=== PATIENT | female | born 1955 | race Caucasian/White ===

== ENCOUNTER → 2021-03-29 | Outpatient (CLI) | payer OTHER ==
[~2021-03-29] MED LIST: ASPI81EC; HYDACE5 PO; IBUP600 PO
[2021-03-29 15:38] LABS: BASOPHILS ABSOLUTE AUTO 0.06 K/mm3 (0.00-0.23); BASOPHILS PERCENT AUTO 1 % (0-2); EOSINOPHILS PERCENT AUTO 2 % (0-6); Hemoglobin 12.7 g/dL (11.5-16.0); IMMATURE GRAN ABSOLUTE AUTO 0.02 K/mm3 (0.00-0.10); IMMATURE GRAN PERCENT AUTO 0 % (0-1); LYMPHOCYTES ABSOLUTE AUTO 1.52 K/mm3 (0.84-5.20); LYMPHOCYTES PERCENT AUTO 25 % (21-46); MONOCYTES ABSOLUTE AUTO 0.44 K/mm3 (0.16-1.47); MONOCYTES PERCENT AUTO 7 % (4-13); Mean Corpuscular HGB 32.8 pg (26.0-34.0); Mean Corpuscular HGB Conc 32.6 g/dL (31.5-36.5); Mean Corpuscular Volume 101 fL (80-100); Mean Platelet Volume 9.7 fL (9.1-12.4); NEUTROPHILS ABSOLUTE AUTO 3.88 K/mm3 (1.96-9.15); NEUTROPHILS PERCENT AUTO 65 % (41-73); Platelet Count 395 K/mm3 (150-400); RDW Coefficient Variation 12.9 % (11.7-14.2); RDW Standard Deviation 47.4 fL (35.1-46.3); Red Blood Cell Count 3.87 M/mm3 (3.80-5.20); White Blood Cell Count 6.02 K/mm3 (4.00-11.30)
[2021-03-29 15:57] LABS: Alanine Aminotransfer (ALT/SGP 17 U/L (12-78); Alk Phos 78 U/L (40-126); Anion Gap 8 mmol/L (6-16); Aspartate Aminotrans (AST/SGOT 16 U/L (12-37); Bilirubin, Total 0.4 mg/dL (0.1-1.0); Blood Urea Nitrogen 12 mg/dL (8-24); CO2, Blood 32 mmol/L (21-32); Chloride, Blood 107 mmol/L (98-108); Creatinine, Blood 0.86 mg/dL (0.40-1.00); Glomerular Filtration Rate >60 (60-); Glucose, Blood 95 mg/dL (70-99); Potassium, Blood 4.2 mmol/L (3.5-5.5); Sodium, Blood 147 mmol/L (136-145); Thyroid Stimulating Hormone 0.979 uIU/mL (0.360-4.800)
== END | disposition home or self-care (01) ==
LOC: LAB SHORT 15:33
PROVIDERS: Physician Assistant Medical
DX: R53.83 Other fatigue (principal)
CPT/HCPCS: 80053; 84443; 85025; 87086

== ENCOUNTER 2021-07-22 16:50 | Observation (INO) | payer OTHER ==
[~2021-07-22] VITALS: Ht 162.6 cm; Wt 50.0 kg
[2021-07-22 17:26] LABS: BASOPHILS ABSOLUTE AUTO 0.08 K/mm3 (0.00-0.23); BASOPHILS PERCENT AUTO 1 % (0-2); EOSINOPHILS ABSOLUTE AUTO 0.07 K/mm3 (0.00-0.68); EOSINOPHILS PERCENT AUTO 1 % (0-6); Hematocrit 44.9 % (33.0-51.0); Hemoglobin 14.7 g/dL (11.5-16.0); IMMATURE GRAN ABSOLUTE AUTO 0.03 K/mm3 (0.00-0.10); IMMATURE GRAN PERCENT AUTO 0 % (0-1); LYMPHOCYTES ABSOLUTE AUTO 0.94 K/mm3 (0.84-5.20); LYMPHOCYTES PERCENT AUTO 13 % (21-46); MONOCYTES ABSOLUTE AUTO 0.81 K/mm3 (0.16-1.47); MONOCYTES PERCENT AUTO 11 % (4-13); Mean Corpuscular HGB 32.2 pg (26.0-34.0); Mean Corpuscular HGB Conc 32.7 g/dL (31.5-36.5); Mean Corpuscular Volume 98 fL (80-100); Mean Platelet Volume 9.1 fL (9.1-12.4); NEUTROPHILS ABSOLUTE AUTO 5.47 K/mm3 (1.96-9.15); NEUTROPHILS PERCENT AUTO 74 % (41-73); Platelet Count 448 K/mm3 (150-400); RDW Coefficient Variation 12.4 % (11.7-14.2); RDW Standard Deviation 45.1 fL (35.1-46.3); Red Blood Cell Count 4.57 M/mm3 (3.80-5.20)
[2021-07-22 17:46] LABS: Alanine Aminotransfer (ALT/SGP 17 U/L (12-78); Albumin, Blood 3.6 g/dL (3.4-5.0); Albumin/Globulin Ratio 0.9 (0.8-1.8); Alk Phos 78 U/L (50-136); Anion Gap 6 mmol/L (6-16); Aspartate Aminotrans (AST/SGOT 18 U/L (12-37); Bilirubin, Total 0.7 mg/dL (0.1-1.0); Blood Urea Nitrogen 13 mg/dL (8-24); CO2, Blood 29 mmol/L (21-32); Chloride, Blood 104 mmol/L (98-108); Creatinine, Blood 0.87 mg/dL (0.40-1.00); Globulin, Blood 3.9 g/dL (2.2-4.0); Glomerular Filtration Rate >60 (60-); Glucose, Blood 126 mg/dL (70-99); Potassium, Blood 4.1 mmol/L (3.5-5.5); Sodium, Blood 139 mmol/L (136-145); Total Protein, Blood 7.5 g/dL (6.4-8.2); Troponin I <0.015 ng/mL (0.000-0.040)
[2021-07-22 17:47] LABS: International Normalized Ratio 1.02; Prothrombin Time Results 10.7 Sec (9.7-11.5)
[2021-07-23 05:26] LABS: BASOPHILS ABSOLUTE AUTO 0.06 K/mm3 (0.00-0.23); BASOPHILS PERCENT AUTO 1 % (0-2); EOSINOPHILS PERCENT AUTO 0 % (0-6); Hematocrit 40.7 % (33.0-51.0); Hemoglobin 13.4 g/dL (11.5-16.0); IMMATURE GRAN ABSOLUTE AUTO 0.03 K/mm3 (0.00-0.10); IMMATURE GRAN PERCENT AUTO 1 % (0-1); LYMPHOCYTES ABSOLUTE AUTO 0.88 K/mm3 (0.84-5.20); LYMPHOCYTES PERCENT AUTO 17 % (21-46); MONOCYTES PERCENT AUTO 16 % (4-13); Mean Corpuscular HGB 32.1 pg (26.0-34.0); Mean Corpuscular HGB Conc 32.9 g/dL (31.5-36.5); Mean Corpuscular Volume 97 fL (80-100); Mean Platelet Volume 9.3 fL (9.1-12.4); NEUTROPHILS ABSOLUTE AUTO 3.38 K/mm3 (1.96-9.15); NEUTROPHILS PERCENT AUTO 66 % (41-73); Platelet Count 379 K/mm3 (150-400); RDW Coefficient Variation 12.4 % (11.7-14.2); RDW Standard Deviation 44.4 fL (35.1-46.3); Red Blood Cell Count 4.18 M/mm3 (3.80-5.20); White Blood Cell Count 5.15 K/mm3 (4.00-11.30)
[2021-07-23 05:58] LABS: Albumin, Blood 3.2 g/dL (3.4-5.0); Albumin/Globulin Ratio 0.9 (0.8-1.8); Bilirubin, Total 0.6 mg/dL (0.1-1.0); Calcium, Blood 8.8 mg/dL (8.5-10.1); Globulin, Blood 3.5 g/dL (2.2-4.0); Potassium, Blood 3.9 mmol/L (3.5-5.5); Total Protein, Blood 6.7 g/dL (6.4-8.2)
[2021-07-23 08:56] LABS: Influenza A, PCR NEGATIVE (NEGATIVE); Influenza B, PCR NEGATIVE (NEGATIVE); Resp Syncytial Virus, PCR NEGATIVE (NEGATIVE)
[2021-07-23 09:00] LABS: SARS-Cov-2 (COVID-19) PCR, MMC POSITIVE (NEGATIVE)
--- NOTE | 2021-07-23 19:50 | NUR ---
PT IS FRAIL IN HER APPEARANCE. PT REPORTS MILD GENERALIZED LE WEAKNESS. PT REPORTS RECENT DIAGNOSIS OF CANCER. PT DENIES ANY COMPLAINTS OF HEADACHE, CHEST PAIN, NAUSEA, SOB, OR NUMBNESS AND TINGLING. PT IS ON RA. PT REPORTS SHE HAS HAD AN OCCASIONAL NON-PRODUCTIVE COUGH. PT DENIES ANY SKIN BREAKDOWN. IV TO R) AC - SL'D AND FLUSHED. PT EDUCATED [facility] [employer] LIGHT/ORIENTED TO ROOM, AND TV. 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 FLUIDS AT BEDSIDE. CALL LIGHT WITHIN REACH. BED IN LOW POSITION. PT IN ISOLATION FOR COVID.
--- NOTE | 2021-07-23 21:50 | NUR ---
PAS PLACED ON BY GALLERY HOST. CALL LIGHT WITHIN REACH. BED IN LOW POSITION. FLUIDS AT BEDSIDE.
--- NOTE | 2021-07-24 06:06 | NUR ---
SHIFT SUMMARY - NO ACUTE CHANGES THIS SHIFT. PT SLEPT FOR APPX 5-6 HOURS TONIGHT. PT UP WITH SBA X1 TO BRP - TOLERATED AMBULATION WITHOUT COMPLICATIONS. PT REPORTS SOME ANXIETY WITH THORACENTESIS SCHEDULED FOR TODAY. PT REPORTS HAVING A THORACENTESIS HERE [place] AND THEN AGAIN AT [facility] APPX 2 WEEKS AGO. PT REPORTS ATIVAN MADE HER "LOOPY" IN ER LAST NOC, AND SHE REPORTS SHE DIDN'T TOLERATE THE ATTEMPTED THORACENTESIS IN ER. ANSWERED PT'S QUESTIONS - AND WILL RELAY THIS INFORMATION TO AM SHIFT. FLUIDS AT BEDSIDE. CALL LIGHT WITHIN REACH. BED IN LOW POSITION. PT IN ISOLATION FOR COVID.
[2021-07-24 15:54] LABS: Automated BF WBC Count 1.647 K/mm3 (0-999); Body Fluid WBC Count 1647 /mm3 (0-999)
[2021-07-24 16:09] LABS: Albumin, Body Fluid 2.7 g/dL
[2021-07-24 16:16] LABS: Protein, Body Fluid 4.8 g/dL
[2021-07-24 17:05] LABS: RBC Count, Body Fluid 257 /mm3 (0-0)
[2021-07-24 17:14] LABS: Color, Body Fluid Yellow (None-Yellow); Total Cell Count, Body Fluid 100
[2021-07-24 17:15] LABS: Appearance, Body Fluid Hazy (Clear)
--- NOTE | 2021-07-24 17:52 | NUR ---
SHIFT SUMMARY PT A/O X4 AND PLEASANT. ADMITTED FOR THORACENTESIS AFTER FAILED THORACENTESIS IN THE ER. PT MEDICATED IN THE ER AND EXPERIENCED AMS. PT IS MUCH MORE ORIENTED TODAY AND THORACENTESIS WAS PERFORMED AT BEDSIDE. PT ALSO COVID POSITIVE BUT EXPERIENCING MINOR SYMPTOMS. PT TO FOLLOW UP WITH PULMONOLOGY. VSS. DC'D HOME WITH SON.
== END 2021-07-24 17:50 | disposition home or self-care (01) ==
LOC: ER 16:50 → ERHOLD 16:57 → ER 07-23 00:37 → MEDS 07-23 00:37 → ER 07-23 00:37 → MEDS 07-23 00:37 → ERHOLD 07-23 18:45 → MEDS 07-23 18:56
PROVIDERS: Physician Assistant; Student in an Organized Health Care Education/Training Program; ADMIT Internal Medicine
PROC: 8E0ZXY6 Isolation (ICD-10-PCS; 2021-07-23)
PROC: 0W9B3ZZ Drainage of Left Pleural Cavity, Percutaneous Approach (ICD-10-PCS; principal; 2021-07-24)
DX: C34.92 Malignant neoplasm of unspecified part of left bronchus or lung (principal); J91.0 Malignant pleural effusion; U07.1 COVID-19; F41.9 Anxiety disorder, unspecified; C79.9 Secondary malignant neoplasm of unspecified site; Z87.891 Personal history of nicotine dependence; Z88.5 Allergy status to narcotic agent
CPT/HCPCS: 0241U; 36415; 71045; 71046; 80053; 82042; 84157; 84484; 85025; 85610; 85730; 87070; 87205; 89051; 93005; 93010; 96372-59; 96374; 96375; 99285-25; A9270; G0378; J1650; J1940; J2405; J3010

== ENCOUNTER → 2024-03-05 | Outpatient (CLI) | payer OTHER ==
[2024-03-05 13:15] LABS: BASOPHILS ABSOLUTE AUTO 0.05 K/mm3 (0.00-0.23); BASOPHILS PERCENT AUTO 1 % (0-2); EOSINOPHILS ABSOLUTE AUTO 0.16 K/mm3 (0.00-0.68); EOSINOPHILS PERCENT AUTO 3 % (0-6); Hematocrit 37.6 % (33.0-51.0); Hemoglobin 11.9 g/dL (11.5-16.0); IMMATURE GRAN ABSOLUTE AUTO 0.02 K/mm3 (0.00-0.10); IMMATURE GRAN PERCENT AUTO 0 % (0-1); LYMPHOCYTES ABSOLUTE AUTO 1.18 K/mm3 (0.84-5.20); LYMPHOCYTES PERCENT AUTO 22 % (21-46); MONOCYTES ABSOLUTE AUTO 0.59 K/mm3 (0.16-1.47); MONOCYTES PERCENT AUTO 11 % (4-13); Mean Corpuscular HGB 31.6 pg (26.0-34.0); Mean Corpuscular HGB Conc 31.6 g/dL (31.5-36.5); Mean Corpuscular Volume 100 fL (80-100); Mean Platelet Volume 9.6 fL (9.1-12.4); NEUTROPHILS ABSOLUTE AUTO 3.47 K/mm3 (1.96-9.15); NEUTROPHILS PERCENT AUTO 63 % (41-73); Platelet Count 360 K/mm3 (150-400); RDW Coefficient Variation 12.8 % (11.7-14.2); RDW Standard Deviation 46.9 fL (35.1-46.3); Red Blood Cell Count 3.77 M/mm3 (3.80-5.20); White Blood Cell Count 5.47 K/mm3 (4.00-11.30)
[2024-03-05 13:46] LABS: Albumin, Blood 3.4 g/dL (3.4-5.0); Albumin/Globulin Ratio 0.8 (0.8-1.8); Bilirubin, Total 0.7 mg/dL (0.1-1.0); Bun/Creatinine Ratio 9.7 (12.0-20.0); Calcium, Blood 8.8 mg/dL (8.5-10.1); Creatinine, Blood 0.82 mg/dL (0.40-1.00); Globulin, Blood 4.5 g/dL (2.2-4.0); Total Protein, Blood 7.9 g/dL (6.4-8.2)
== END | disposition home or self-care (01) ==
LOC: LAB SHORT 12:00 → LAB 12:00
PROVIDERS: Internal Medicine Hematology & Oncology
DX: C34.90 Malignant neoplasm of unspecified part of unspecified bronchus or lung (principal)
CPT/HCPCS: 80053; 85025

== ENCOUNTER 2024-04-17 06:19 | Day surgery (SDC) | payer OTHER ==
[~2024-04-17] VITALS: Ht 157.5 cm; Wt 42.5 kg
[2024-04-17] VITALS (10 sets, daily range): BP systolic 98–138; BP diastolic 55–93
[~2024-04-17 06:19] MED LIST changes: +Dexamethasone Sod Phos 10 MG/ML 1ML VIAL ONE; +FentaNYL Citrate 50 MCG/ML 2 ML Injection ONE; +ONDA4 PO; +OXYC5 PO; +Ondansetron HCl 2 MG / ML 2ML Vial ONE; +propofoL 20 ML IV ONE
[2024-04-17] MEDS ORDERED: Rocuronium Bromide 10 MG/ML 5ML Injection IV ONE (07:05)
[2024-04-17] MEDS ORDERED: CeFAZolin Sodium 2,000 MG in NS 100 ML IV SCH (07:15)
[2024-04-17] MEDS ORDERED: Lactated Ringer's 1,000 ML IV SCH (07:15)
[2024-04-17] MEDS ORDERED: Lidocaine HCl 1% 30 ML SDV ONE (07:17)
[2024-04-17] MEDS ORDERED: CeFAZolin Sodium 2,000 MG VIAL ONE (07:23)
[2024-04-17] MEDS ORDERED: Midazolam HCl 1MG / ML 2ML Vial ONE (07:25)
[2024-04-17] MEDS ORDERED: Midazolam HCl 1MG / ML 2ML Vial IV ONE ×2 (07:25→07:30)
[2024-04-17] MEDS ORDERED: Lidocaine HCl 1% 5 ML SYR INFIL PRN (07:30)
[2024-04-17] MEDS ORDERED: OxyCODONE 5 mg/Acetamin 325 mg TABLET PO PRN (08:55)
--- NOTE | 2024-04-17 09:25 | NUR ---
DR MUHAMMAD VERIFIES MEDIPORT PLACEMENT
--- NOTE | 2024-04-17 10:05 | NUR ---
Patient up to Ambulate independently. Gait steady. Discharge instructions reviewed with patient. Patient verbalizes understanding. Copy given to patient to take home, [facility]. Patient States Post-Procedure ride home has been arranged. Discharged via wheelchair to private car for ride home. PT INCISIONS C/D/I. DENIES PAIN,N/V. REPORTS READY TO GO HOME.
== END 2024-04-17 10:05 | disposition home or self-care (01) ==
LOC: ORSCMMR 06:19 → ORD 07:30 → ORSCMMR 07:30
PROVIDERS: Surgery
PROC: B543ZZA Ultrasonography of Right Jugular Veins, Guidance (ICD-10-PCS; principal; 2024-04-17 07:30)
PROC: 0JH63WZ Insertion of Totally Implantable Vascular Access Device into Chest Subcutaneous Tissue and Fascia, Percutaneous Approach (ICD-10-PCS; principal; 2024-04-17 07:30)
PROC: 05HM33Z Insertion of Infusion Device into Right Internal Jugular Vein, Percutaneous Approach (ICD-10-PCS; principal; 2024-04-17 07:30)
DX: C34.91 Malignant neoplasm of unspecified part of right bronchus or lung (principal); K21.9 Gastro-esophageal reflux disease without esophagitis; F41.9 Anxiety disorder, unspecified; Z79.899 Other long term (current) drug therapy; C79.51 Secondary malignant neoplasm of bone
CPT/HCPCS: 77001; C1788; J0690; J1100; J1642; J2250; J2405; J2704; J3010; J7120